=== PATIENT | male | born 1945 | race Caucasian/White ===

== ENCOUNTER 2018-07-10 01:41 | Inpatient (IN) | payer MEDICARE ==
[~2018-07-10] VITALS: Ht 165.1 cm; Wt 61.2 kg
[2018-07-10 01:45] VITALS: BP 124/61
--- NOTE | 2018-07-10 01:50 | NUR ---
ADMISSION NOTES: RECEIVED REPORT FROM SUPERVISOR MA[employer]ERS LISSETH, PT DIRECT ADMIT FROM [facility], BROUGHT TO THE UNIT VIA GURNEY. PT A/O X4 CHINESE SPEAKING UNDERSTAND CITIZEN [place] ABLE TO MAKE NEEDS KNOWN IN [place]IZ[place]. ON RA RESPIRATION EVEN AND UNLABORED. IV ACCESS PATENT AND FLUSHING WELL, ON HL. ORIENTED PT TO UNIT POLICY AND HOURLY ROUNDING, USE OF CALL LIGHT. INVENTORY OF BELONGING COMPLETED BY MELIDA GIRALDO. VS TAKEN AND RECORDED. SKIN ASSESSMENT PERFORMED. WOUND CARE DONE. MRSA SWAB COLLECTED. NOTIFIED MD REGARDING PT'S ARRIVAL IN THE UNIT. SAFETY PRECAUTIONS FOR FALL INITIATED, CALL LIGHT IN REACH, WILL CONTINUE MONITORING PT.
[2018-07-10 02:00] VITALS: BP 124/61
[2018-07-10] MEDS ORDERED: TETR-66 PO (02:29)
--- NOTE | 2018-07-10 02:34 | NUR ---
prn norco: pt c/o right great toe-foot pain 06/17 requesting for pain medication, prn norco 5/325 mg tab po administered to the pt at this time, will continue to monitor and reassess pt
[2018-07-10] MEDS ORDERED: MAGNESIUM HYDROXIDE 30 ML UDC PO PRN (03:00)
[2018-07-10] MEDS ORDERED: VANCOMYCIN 1 GM in IV NS 0.9% 250 ML IV ONE (03:00)
[2018-07-10] MEDS ORDERED: MORPHINE SULFATE INJ 2 MG/ML DISP.SYRIN IV PRN (03:00)
[2018-07-10] MEDS ORDERED: ZOLPIDEM TARTRATE 5 MG TABLET PO PRN (03:00)
[2018-07-10] MEDS ORDERED: ONDANSETRON HCL/PF 4 MG/2 ML VIAL IVP PRN (03:00)
[2018-07-10] MEDS ORDERED: Z GUARD REMEDY 2 OZ OINT TP PRN (03:00)
[2018-07-10] MEDS ORDERED: DEXTROSE 50%-WATER 50 ML DISP.SYRIN IV PRN (03:00)
[2018-07-10] MEDS ORDERED: ACETAMINOPHEN 325 MG TABLET PO PRN (03:00)
[2018-07-10] MEDS ORDERED: MAG HYDROX/AL HYDROX/SIMETH 30 ML UDC PO PRN (03:00)
--- NOTE | 2018-07-10 03:00 | NUR ---
RN NOTES: NOTIFIED PHARMACY PATHOLOGY TECHNOLOGIST THAT PT RECEIVED VANCOMYCIN 1000MG IV IN [place] AT 2119 07/09/18
[2018-07-10] MEDS ORDERED: PIPERACILLIN /TAZOBACTAM 3.375 G VIAL IV ONE (03:05)
[2018-07-10 03:17] LABS: BASOPHILS % (AUTO) 0.5 % (0.0-2.0); EOSINOPHILS % (AUTO) 0.6 % (0.0-6.0); HEMATOCRIT 33 % (39-51); HEMOGLOBIN 11.4 g/dL (13.5-17.5); LYMPHOCYTES # (AUTO) 1.4 /CMM (0.8-4.8); LYMPHOCYTES % (AUTO) 17.7 % (20.0-44.0); MEAN CORPUSCULAR HGB CONC 35 g/dl (31.0-36.0); MEAN CORPUSCULAR VOLUME 91 fL (80-96); MONOCYTES # (AUTO) 0.5 /CMM (0.1-1.30); MONOCYTES % (AUTO) 6.8 % (2.0-12.0); NEUTROPHILS # (AUTO) 5.8 /CMM (1.8-8.9); NEUTROPHILS % (AUTO) 74.4 % (43.0-81.0); PLATELET COUNT (AUTO) 316 /CMM (150-450); RED BLOOD CELL COUNT(AUTO) 3.62 MIL/uL (4.5-6.0); WHITE BLOOD COUNT (AUTO) 7.8 K/uL (4.3-11.0)
[2018-07-10] MEDS ORDERED: PIPERACILLIN /TAZOBACTAM 3.375 G in IV NS 0.9% 100 ML IV ONE (03:30)
[2018-07-10 03:34] LABS: ALANINE AMINOTRANSFERASE 11 U/L (12-78); ALBUMIN 2.3 g/dL (3.4-5.0); ALKALINE PHOSPHATASE 88 U/L (46-116); ASPARTATE AMINOTRANSFERASE 9 U/L (15-37); BILIRUBIN,TOTAL 0.3 mg/dL (0.2-1.0); CALCIUM, SERUM 8.5 mg/dL (8.5-10.1); CARBON DIOXIDE 26 mmol/L (21-32); CHLORIDE 107 mmol/L (98-107); CREATININE 0.9 mg/dL (0.6-1.3); GLUCOSE 127 mg/dL (74-106); POTASSIUM 3.2 mmol/L (3.5-5.1); SODIUM SERUM 142 mmol/L (136-145); TOTAL PROTEIN, SERUM 7.3 g/dL (6.4-8.2); UREA NITROGEN, BLOOD 16 mg/dL (7-18)
[2018-07-10] MEDS: HYDROCODONE/APAP 5/325MG 1 EACH TABLET PO PRN ×2 (03:34→08:59)
[2018-07-10] MEDS: BLOOD SUGAR DIAGNOSTIC 1 EACH STRIP VI SCH ×4 (05:39→21:55)
[2018-07-10] MEDS: INSULIN REGULAR, HUMAN 100 UNIT/ML 3 ML VIAL SQ PRN ×2 (05:41→13:29)
--- NOTE | 2018-07-10 05:45 | NUR ---
accu check 188: blood sugar 188, 3units of insulin given per sliding scale
--- NOTE | 2018-07-10 06:08 | NUR ---
RN NOTES: NOTIFIED INDIVIDUAL PENSION ADVISER MD REGARDING RESULT OF POTASSIUM, K 3.2 AWAITING FOR CALLBACK
--- NOTE | 2018-07-10 06:11 | NUR ---
PARAM NOTES: 40MG PO KCL REPLACEMENT T/O BY
[2018-07-10] MEDS ORDERED: POTASSIUM CHLORIDE 10 MEQ TABLET.SA PO ONE (06:30)
--- NOTE | 2018-07-10 06:42 | NUR ---
rn closing notes: pt in bed, denies any pain or discomfort at this time, iv access remains patent and flushing well, on hl. vs remains stable, dressing on right foot remains c/d/i. needs attended. safety precautions for fall remains engaged, call light in reach, will endorse to day rn for continuity of care.
[2018-07-10 08:00] VITALS: BP 124/60
--- NOTE | 2018-07-10 08:00 | NUR ---
RN NOTES RECEIVED PATIENT IN THE BED A/ O X3 FAROESE SPEAKER, NO SOB, UNLABORED. PATIENT HAS A IV ACCESS ON RIGHT AC AREA INTACT, PATENT. ADMINISTERED SCHEDULED MEDICATION, V/S STABLE. PATIENT HAS A BLOCK DISCOLORATION OF RIGHT BIG TOE, AND EDEMA . COVERED WITH DRY DRESSING. ENCOURAGED DO NOT PUT PRESSURE ON. KEEP ELEVATED USING PILLOWS. PATIENT USING BATHROOM, AND URINAL. CLL LIGHT WITHIN TO REACH, SAFETY PRECAUTION MAINTAINED ALL THE TIME.
[2018-07-10] MEDS ORDERED: FEE PK DOSING 1 MIN EA MC ONE (08:01)
[2018-07-10] MEDS: VANCOMYCIN 0.75 GM in IV D5W 250 ML IV SCH ×2 (08:53→20:29)
--- NOTE | 2018-07-10 09:00 | NUR ---
RN NOTES ADMINISTERED NARCO 5/325 MG PO PRN FOR RIGHT FOOT PAIN 07/18 PER PATIENT REQUEST, V/S TAKEN BP 124/60, P-54, CONTINUED MONITORING. PATIENT AMBULATORY USING BATHROOM. INFUSING VANCOMYCIN 250 MG/ML HR ON RIGHT AC AREA INTACT, PATENT. CALL LIGHT WITHIN TO REACH. SAFETY PRECAUTION MAINTAINED ALL THE TIME.
[2018-07-10] MEDS: PIPERACILLIN /TAZOBACTAM 3.375 G in IV D5W 100 ML IV SCH ×2 (10:23→18:06)
--- NOTE | 2018-07-10 12:00 | NUR ---
RN NOTES BS-276 MG/DL. COVERAGE GIVEN, ALSO INFUSING ZOSYN 25 ML/HR NOW, SAFETY PRECAUTION MAINTAINED ALL THE TIME.
[2018-07-10 16:00] VITALS: BP 109/56
--- NOTE | 2018-07-10 18:30 | NUR ---
RN NOTES BS-126 MG/DL, COVERAGE GIVEN, ADMINISTERED SCHEDULED MEDICATION, V/S STABLE, SAFETY PRECAUTION MAINTAINED ALL THE TIME.
--- NOTE | 2018-07-10 18:30 | NUR ---
RN NOTES PATIENT STABLE, REFUSED PAIN, INFUSING ZOSYN 25 ML/HR INTACT ON RIGHT AC AREA , V/S STABLE. ENDORSED ONCOMING NURSE PLAN OF CARE.
[2018-07-10 20:00] VITALS: BP 135/66
[2018-07-10] MEDS: *INSULIN REGULAR(HUMULIN R)HUM 100 UNIT/ML VIAL SQ PRN (22:06)
[2018-07-11] MEDS: PIPERACILLIN /TAZOBACTAM 3.375 G in IV D5W 100 ML IV SCH ×3 (01:18→17:12)
[2018-07-11] MEDS: BLOOD SUGAR DIAGNOSTIC 1 EACH STRIP VI SCH ×4 (06:53→22:22)
[2018-07-11] MEDS: INSULIN REGULAR, HUMAN 100 UNIT/ML 3 ML VIAL SQ PRN ×3 (06:54→17:32)
--- NOTE | 2018-07-11 07:29 | NUR ---
MS RN OPENING NOTES RECEIVED PT AWAKE IN BED IN NO ACUTE SIGNS OF DISTRESS. A/O X4. ABLE TO MAKE NEEDS KNOWN, DENIES PAIN OR DISCOMFORTS AT THIS TIME. ON ROOM AIR, BREATHING EVEN AND UNLABORED. DRESSINGS ON RIGHT FOOT C/D/I. IV ACCESS ON RAC G#20 INTACT AND PATENT. BED IN LOWEST LOCKED POSITION WITH SR UP X2. CALL LIGHT WITHIN REACH. WILL CONTINUE TO MONITOR ACCORDINGLY.
[2018-07-11 08:00] VITALS: BP 137/69
[2018-07-11 08:19] LABS: BASOPHILS # (AUTO) 0.1 /CMM (0.0-0.2); BASOPHILS % (AUTO) 0.8 % (0.0-2.0); EOSINOPHILS % (AUTO) 0.9 % (0.0-6.0); HEMATOCRIT 35 % (39-51); HEMOGLOBIN 12.1 g/dL (13.5-17.5); LYMPHOCYTES # (AUTO) 1.8 /CMM (0.8-4.8); LYMPHOCYTES % (AUTO) 22.9 % (20.0-44.0); MEAN CORPUSCULAR HGB CONC 35 g/dl (31.0-36.0); MEAN CORPUSCULAR VOLUME 91 fL (80-96); MONOCYTES # (AUTO) 0.6 /CMM (0.1-1.30); MONOCYTES % (AUTO) 8.1 % (2.0-12.0); NEUTROPHILS # (AUTO) 5.2 /CMM (1.8-8.9); NEUTROPHILS % (AUTO) 67.3 % (43.0-81.0); PLATELET COUNT (AUTO) 331 /CMM (150-450); RED BLOOD CELL COUNT(AUTO) 3.82 MIL/uL (4.5-6.0); WHITE BLOOD COUNT (AUTO) 7.7 K/uL (4.3-11.0)
[2018-07-11 08:30] LABS: CALCIUM, SERUM 8.1 mg/dL (8.5-10.1); CARBON DIOXIDE 24 mmol/L (21-32); CHLORIDE 104 mmol/L (98-107); GLUCOSE 187 mg/dL (74-106); MAGNESIUM 1.9 mg/dL (1.8-2.4); PHOSPHORUS 2.8 mg/dL (2.5-4.9); POTASSIUM 3.8 mmol/L (3.5-5.1); SODIUM SERUM 138 mmol/L (136-145); UREA NITROGEN, BLOOD 11 mg/dL (7-18)
[2018-07-11 08:52] LABS: CHOLESTEROL 124 mg/dL (<200); HDL CHOLESTEROL 31 mg/dL (40-60); LDL 77 mg/dL (0-99); THYROID STIMULATING HORMONE 1.637 uIU/mL (0.358-3.74); TRIGLYCERIDES 101 mg/dL (30-150)
[2018-07-11] MEDS: INSULIN GLARGINE, 100 UNIT/ML CARTRIDGE SQ SCH ×2 (09:09→22:33)
[2018-07-11] MEDS: METFORMIN 500 MG TABLET PO SCH ×2 (09:10→16:10)
[2018-07-11] MEDS: VANCOMYCIN 0.75 GM in IV D5W 250 ML IV SCH (09:10)
--- NOTE | 2018-07-11 11:20 | NUR ---
RN NOTES PATIENT SEEN AND EVALUATED BY DR CADET WITH ORDER TO OBTAIN CONSENTS FOR RIGHT FOOT WOUND DEBRIDEMENT TODAY AND RIGHT FOOT PARTIAL FIRST RAY AMPUTATION TOMORROW. PT VERBALIZED UNDERSTANDING OF SAID SURGERIES AND SIGNED ALL CONSENTS. PT FOR MRI OF RIGHT FOOT WITHOUT CONTRAST. MRI CHECKLIST DONE. DIRECTOR OF DIETARY CALLED AND HE STATED THAT THEY WILL COME TODAY TO DO IT. WILL CONTINUE TO MONITOR.
[2018-07-11] MEDS ORDERED: LIDOCAINE 1% INJ 50 ML MDV IJ STA (11:51)
--- NOTE | 2018-07-11 12:57 | NUR ---
RN NOTES PT WENT EARLIER FOR MRI OF RIGHT FOOT W/O CONTRAST VIA WHEELCHAIR AND CAME BACK IN NO ACUTE SIGNS OF DISTRESS. WILL F/U RESULTS OF MRI.
--- NOTE | 2018-07-11 13:31 | NUR ---
WOUND CARE CONSULT: PT FOLLOWED BY DR NY FOR LOWER EXTREMITY WOUND. DEFER TO PODIATRY FOR WOUND TREATMENT PLAN. CURRENT DUSTIN SCORE IS 23. WILL SEE PRN.
--- NOTE | 2018-07-11 14:20 | NUR ---
RN NOTES PT S/P RIGHT FOOT WOUND DEBRIDEMENT BY DR NY. WOUND SPECIMEN COLLECTED FOR CULTURE. DRESSING C/D/I WRAPPED WITH WIL BANDAGE. WILL CONTINUE TO MONITOR.
[2018-07-11 16:00] VITALS: BP 116/57
[2018-07-11] MEDS: LACTOBACILLUS RHAMNOSUS GG 1 EACH CAP.SPRINK PO SCH (16:10)
--- NOTE | 2018-07-11 18:41 | NUR ---
MS RN CLOSING NOTES PT IN BED AWAKE AND RESTING AT MODERATE HIGH BACKREST POSITION. A/O X4. WELSH SPEAKING AND UNDERSTANDS SOME [place]. ON ROOM AIR, TOLERATING WELL WITH NO SOB NOTED. PT FOR RIGHT FOOT PARTIAL FIRTS RAY AMPUTATION TOMORROW BY DR NY. NPO TO BE ENFORCED POST MIDNIGHT, PT MADE AWARE. DRESSINGS ON RIGHT FOOT C/D/I. IV ACCESS ON RAC G#20 INTACT AND PATENT, IV ATB ZOSYN @ 225ML/HR INFUSING AT THIS TIME, NO S/S OF INFILTRATIONS NOTED. SAFETY MEASURES IN PLACE. BED IN LOWEST LOCKED POSITION WITH SR UP X2. CALL LIGHT WITHIN REACH. WILL ENDORSE TO BARREL RIBS SOLDERER NURSE FOR CARMELITA.
--- NOTE | 2018-07-11 19:50 | NUR ---
RN NOTES RECEIVED PATIENT IN BED AWAKE AND RESTING AT MODERATE HIGH BACKREST POSITION. A/O X4. SWEDISH SPEAKING AND UNDERSTANDS SOME [place]. ON ROOM AIR, TOLERATING WELL WITH NO SOB NOTED. PT FOR RIGHT FOOT PARTIAL FIRST RAY AMPUTATION TOMORROW BY DR NY. DRESSINGS ON RIGHT FOOT C/D/I. IV ACCESS ON RAC G#20 INTACT AND PATENT, NO S/S OF INFILTRATIONS NOTED. SAFETY MEASURES IN PLACE. BED IN LOWEST LOCKED POSITION WITH SR UP X2. CALL LIGHT WITHIN REACH. WILL CONTINUE TO MONITOR ACCORDINGLY.
[2018-07-11 20:00] VITALS: BP 131/65
[2018-07-11] MEDS: HYDROCODONE/APAP 5/325MG 1 EACH TABLET PO PRN (20:33)
--- NOTE | 2018-07-11 20:33 | NUR ---
RN NOTES PATIENT C/O PAIN 08/17, NORCO 5-325 MG/TAB GIVEN , WILL CONTINUE TO MONITOR.
[2018-07-11] MEDS: *INSULIN REGULAR(HUMULIN R)HUM 100 UNIT/ML VIAL SQ PRN (22:31)
[2018-07-12] MEDS: PIPERACILLIN /TAZOBACTAM 3.375 G in IV D5W 100 ML IV SCH ×3 (02:41→17:25)
--- NOTE | 2018-07-12 06:59 | NUR ---
RN NOTES ALL NEEDS ATTENDED AND MET, NPO SINCE AFTER MIDNIGHT, PATIENT VERBALIZES UNDERSTANDING THAT HE WILL HAVE A SURGERY / PROCEDURE TODAY 07/12/18 AT 1300. DENIES ANY PAIN AND/OR DISCOMFORT AT THIS TIME BLOOD GLUCOSE CHECKED 148 MG/DL, SAFETY MEASURES IN PLACE, CALL LIGHT WITHIN EASY REACH, WILL ENDORSE TO AM NURSE FOR CONTINUITY OF CARE.
[2018-07-12 07:04] LABS: CALCIUM, SERUM 8.2 mg/dL (8.5-10.1); CARBON DIOXIDE 27 mmol/L (21-32); CHLORIDE 104 mmol/L (98-107); GLUCOSE 152 mg/dL (74-106); POTASSIUM 3.7 mmol/L (3.5-5.1); SODIUM SERUM 140 mmol/L (136-145); UREA NITROGEN, BLOOD 10 mg/dL (7-18)
--- NOTE | 2018-07-12 07:33 | NUR ---
MS/RN OPENING NOTE PATIENT IN BED IN STABLE CONDITION. A/O X 4. NO SIGNS OF ACUTE DISTRESS. NO COMPLAIN OF PAIN OR DISCOMFORT. ALL NEEDS ATTENDED TO. CALL LIGHT WITHIN REACH. WILL CONTINUE TO MONITOR TO ENSURE SAFETY.
[2018-07-12 08:00] VITALS: BP 122/58
[2018-07-12] MEDS: LACTOBACILLUS RHAMNOSUS GG 1 EACH CAP.SPRINK PO SCH ×2 (08:32→17:24)
[2018-07-12] MEDS: BLOOD SUGAR DIAGNOSTIC 1 EACH STRIP VI SCH ×4 (08:32→22:21)
[2018-07-12] MEDS: METFORMIN 500 MG TABLET PO SCH ×2 (08:33→17:24)
[2018-07-12] MEDS: INSULIN REGULAR, HUMAN 100 UNIT/ML 3 ML VIAL SQ PRN ×2 (11:47→17:50)
[2018-07-12] MEDS ORDERED: BUPIVACAINE MPF 0.5% W/EPI INJ 30 ML VIAL ONE (11:55)
[2018-07-12] MEDS ORDERED: LIDOCAINE HCL/PF 1% 30 ML SDV ONE (11:55)
[2018-07-12] MEDS ORDERED: FENTANYL PF 100MCG/2ML AMPUL ONE (12:47)
[2018-07-12] MEDS ORDERED: ROCURONIUM BROMIDE 50 MG/5 ML ONE (12:47)
[2018-07-12] MEDS ORDERED: MIDAZOLAM HCL 2 MG/2ML VIAL ONE (12:47)
--- NOTE | 2018-07-12 12:48 | NUR ---
MS/RN PATIENT LEFT FOR SURGERY IN STABLE CONDITION VIA BED ACCOMPANIED BY OR NURSE AND TRANSPORTER PERSONAL.
--- NOTE | 2018-07-12 14:30 | NUR ---
MS/RN PATIENT RETURNED FROM SURGERY IN STABLE CONDITION. S/P RIGHT FOOT PARTIAL FIRST RAY AMPUTATION TODAY. TOLERATED WELL. A/O X 4. PREVIOUS DIET RESUMED,RLE NWB, WOUND DRESSING CHANGE ORDER PER DR MONIQUE Marks. ALSO VERIFY ORDER FOR F/U WOUND CX PER DR AMAYA DISREGARD THAT ORDER. ALL ORDERS NOTED AND CARRIED OUT PATIENT AWARE.
[2018-07-12 16:00] VITALS: BP 120/73
--- NOTE | 2018-07-12 18:21 | NUR ---
MS/RN CLOSING NOTE PATIENT IN BED IN STABLE CONDITION. A/O X 4. NO SIGNS OF ACUTE DISTRESS. NO COMPLAIN OF PAIN OR DISCOMFORT. ALL NEEDS ATTENDED TO. CALL LIGHT WITHIN REACH. WILL ENDORSE TO NEXT SHIFT FOR CONTINUITY OF CARE.
--- NOTE | 2018-07-12 19:55 | NUR ---
RN NOTES RECEIVED PATIENT AWAKE, RESTING COMFORTABLY, DENIES ANY PAIN OR DISCOMFORT AT THIS TIME, SAFETY MEASURES IN PLACE, CALL LIGHT WITHIN EASY REACH, IV ACCESS INTACT AND PATENT, KEEP COMFORTABLE, WILL CONTINUE TO MONITOR ACCORDINGLY.
[2018-07-12 20:23] VITALS: BP 121/57
[2018-07-12] MEDS: CEFTRIAXONE 1 G in IV D5W 50 ML IV SCH (20:36)
[2018-07-12] MEDS: INSULIN GLARGINE, 100 UNIT/ML CARTRIDGE SQ SCH (22:53)
[2018-07-12] MEDS: *INSULIN REGULAR(HUMULIN R)HUM 100 UNIT/ML VIAL SQ PRN (22:54)
[2018-07-13] MEDS: HYDROCODONE/APAP 5/325MG 1 EACH TABLET PO PRN ×2 (06:22→13:53)
--- NOTE | 2018-07-13 07:18 | NUR ---
RN NOTES ALL NEEDS ATTENDED, KEPT CLEAN DRY AND COMFORTABLE, COMPLAINTS OF PAIN 7/10 PAIN SCALE, NORCO 5-325MG GIVEN ORDERED, ENDORSED TO AM NURSE FOR CONTINUITY OF CARE, SAFETY MEASURES IN PLACE ASPIRATION PRECAUTION EMPHASIZE, NO APPARENT SIGNS OF DISTRESS LATEST BODY TEMP 98.7 F.
[2018-07-13] MEDS: BLOOD SUGAR DIAGNOSTIC 1 EACH STRIP VI SCH ×2 (07:39→12:22)
[2018-07-13 08:00] VITALS: BP 114/56
[2018-07-13 08:11] LABS: CALCIUM, SERUM 7.7 mg/dL (8.5-10.1); CARBON DIOXIDE 25 mmol/L (21-32); CHLORIDE 105 mmol/L (98-107); CREATININE 0.9 mg/dL (0.6-1.3); GLUCOSE 124 mg/dL (74-106); POTASSIUM 3.6 mmol/L (3.5-5.1); SODIUM SERUM 139 mmol/L (136-145); UREA NITROGEN, BLOOD 11 mg/dL (7-18)
[2018-07-13] MEDS: METFORMIN 500 MG TABLET PO SCH ×2 (09:10→16:54)
[2018-07-13] MEDS: LACTOBACILLUS RHAMNOSUS GG 1 EACH CAP.SPRINK PO SCH ×2 (09:10→16:54)
[2018-07-13] MEDS ORDERED: DEXTROSE 50%-WATER 50 ML DISP.SYRIN IV PRN (14:00)
[2018-07-13 16:00] VITALS: BP 133/62
[2018-07-13] MEDS: BLOOD SUGAR DIAGNOSTIC 1 EACH STRIP IN SCH ×2 (17:43→21:36)
[2018-07-13] MEDS: INSULIN ASPART/LISPRO 100 UNIT/ML CARTRIDGE SQ SCH (19:02)
--- NOTE | 2018-07-13 19:37 | NUR ---
PATIENT RESTING IN BED. ALL NEEDS ATTENDED, DRESSING CHANGED DIRECTED , NO COMPLAINTS OF PAIN AT THIS TIME, SAFETY MEASURES IN PLACE,CALL LIGHT WITHIN REACH. WILL ENDORSE TO NEXT SHIFT FOR CARMELITA.
[2018-07-13 20:00] VITALS: BP 142/67
--- NOTE | 2018-07-13 20:21 | NUR ---
PARAM PM OPENING NOTE. BEDSIDE REPORT RECIEVED FROM GREER VIRGEN. PATIENT RESTING IN BED.POC REVIEWED QUESTIONS CONCERNS ADDRESSED. NO COMPLAINTS OF PAIN AT THIS TIME, SAFETY MEASURES IN PLACE,CALL LIGHT WITHIN REACH. BED DOWN LOCKED SR X2 CALL LIGHT IN REACH. Addendum: 07/13/18 at 2025 by JACE ANG RN ERROR, INCORRECT TIME. TIME WAS 1914 FOR NOTE.
[2018-07-13] MEDS: CEFTRIAXONE 1 G in IV D5W 50 ML IV SCH (20:52)
[2018-07-13] MEDS: INSULIN GLARGINE, 100 UNIT/ML CARTRIDGE SQ SCH (21:36)
--- NOTE | 2018-07-13 21:37 | NUR ---
lant held no scheduled dose of lantus tonight but ordered daily for hs. Lantus not administered patient bs this evening is 88. will cont to monitor.
[2018-07-14] MEDS: BLOOD SUGAR DIAGNOSTIC 1 EACH STRIP IN SCH ×4 (06:57→21:29)
[2018-07-14] MEDS: HYDROCODONE/APAP 5/325MG 1 EACH TABLET PO PRN ×2 (06:59→14:06)
[2018-07-14 08:00] VITALS: BP 125/60
[2018-07-14 08:01] LABS: CALCIUM, SERUM 8.8 mg/dL (8.5-10.1); CARBON DIOXIDE 22 mmol/L (21-32); CHLORIDE 105 mmol/L (98-107); CREATININE 0.9 mg/dL (0.6-1.3); GLUCOSE 107 mg/dL (74-106); POTASSIUM 3.8 mmol/L (3.5-5.1); SODIUM SERUM 139 mmol/L (136-145); UREA NITROGEN, BLOOD 10 mg/dL (7-18)
[2018-07-14] MEDS: METFORMIN 500 MG TABLET PO SCH ×2 (08:29→17:47)
[2018-07-14] MEDS: LACTOBACILLUS RHAMNOSUS GG 1 EACH CAP.SPRINK PO SCH ×2 (08:29→17:47)
[2018-07-14] MEDS: INSULIN ASPART/LISPRO 100 UNIT/ML CARTRIDGE SQ SCH ×2 (08:33→18:20)
[2018-07-14] MEDS: INSULIN REGULAR, HUMAN 100 UNIT/ML 3 ML VIAL SQ PRN ×3 (11:38→21:31)
[2018-07-14] MEDS ORDERED: FEE PK DOSING 1 MIN EA MC ONE (12:52)
[2018-07-14] MEDS ORDERED: VANCOMYCIN 1 GM in IV D5W 250 ML IV SCH (14:00)
[2018-07-14 16:00] VITALS: BP 125/57
--- NOTE | 2018-07-14 19:07 | NUR ---
RN MS NOTES RECEIVED PATIENT IN BED AWAKE ALERT AND ORIENTED X4, RESPIRATIONS EVEN AND UNLABORED WITH EQUAL RISE AND FALL OF CHEST, DENIES ANY PAIN OR DISCOMFORT AT THIS TIME, RIGHT FOOT DRESSING AND WIL BANDAGE INTACT, CLEAN AND DRY, RIGHT AC#18G INTACT AND PATENT, NO REDNESS, NO INFILTRATION PRESENT,URINAL AT BEDSIDE AND WITHIN REACH, ORIENTED TO STAFF AND CALL LIGHT AND KEPT WITHIN REACH, SAFETY PRECAUTIONS IN PLACE,LOW BED AND LOCKED, MADE AWARE TO UTILIZE CALL LIGHT PRIOR TO GOING TO BATHROOM FOR ASSISTANCE AND SAFETY, AND NON WEIGHT BEARING STATUS TO RIGHT FOOT, VERBALIZE HE UNDERSTANDS, ALL NEEDS ATTENDED AT THIS TIME, WILL CONTINUE TO MONITOR AND ATTEND TO NEEDS.
--- NOTE | 2018-07-14 19:11 | NUR ---
PATIENT RESTING IN BED. ALL NEEDS ATTENDED, DRESSING CHANGED DIRECTED, DRESSING CLEAN AND INTACT . NO COMPLAINTS OF PAIN AT THIS TIME, SAFETY MEASURES IN PLACE,CALL LIGHT WITHIN REACH. WILL ENDORSE TO NEXT SHIFT FOR CARMELITA.
[2018-07-14 20:00] VITALS: BP 119/64
[2018-07-14] MEDS: CEFTRIAXONE 1 G in IV D5W 50 ML IV SCH (20:33)
[2018-07-14] MEDS: INSULIN GLARGINE, 100 UNIT/ML CARTRIDGE SQ SCH (21:29)
--- NOTE | 2018-07-14 21:30 | NUR ---
RN MS NOTES ACCU-CHECK 79, PATIENT AT THIS TIME DOES NOT WANT TO HAVE INSULIN LANTUS ADMINISTERED. WILL CONTINUE TO MONITOR FOR ANY CHANGED
[2018-07-15] MEDS: INSULIN REGULAR, HUMAN 100 UNIT/ML 3 ML VIAL SQ PRN ×3 (06:25→17:59)
[2018-07-15] MEDS: BLOOD SUGAR DIAGNOSTIC 1 EACH STRIP IN SCH ×4 (06:29→23:31)
--- NOTE | 2018-07-15 06:51 | NUR ---
RN MS CLOSING NOTES PATIENT IN BED AWAKE ALERT AND ORIENTED X4, RESPIRATIONS EVEN AND UNLABORED WITH EQUAL RISE AND FALL OF CHEST, DENIES ANY PAIN OR DISCOMFORT AT THIS TIME, RIGHT FOOT DRESSING AND WIL BANDAGE INTACT, CLEAN AND DRY, RIGHT AC#18G INTACT AND PATENT, NO REDNESS, NO INFILTRATION PRESENT,URINAL AT BEDSIDE AND WITHIN REACH, CALL LIGHT KEPT WITHIN REACH, SAFETY PRECAUTIONS IN PLACE,LOW BED AND LOCKED NON WEIGHT BEARING STATUS TO RIGHT FOOT, VERBALIZE HE UNDERSTANDS, ALL NEEDS ATTENDED THROUGHOUT SHIFT, WILL CONTINUE TO MONITOR AND ATTEND TO NEEDS AND ENDORSE TO NEXT SHIFT, PATIENT REFUSED TO HAVE LINENS AND GOWN CHANGED.
--- NOTE | 2018-07-15 07:06 | NUR ---
MS RN NOTES PATIENT IN BED ALERT ORIENTED X 3. NO ACUTE DISTRESS NOTED. BREATHING UNLABORED. IV ACCESS PATENT AND INTACT, NO REDNESS OR SWELLING NOTED. SAFETY MEASURES IN PLACE, CALL LIGHT WITHIN REACH. WILL CONTINUE TO MONITOR ACCORDINGLY.
[2018-07-15 08:01] LABS: CALCIUM, SERUM 8.4 mg/dL (8.5-10.1); CARBON DIOXIDE 25 mmol/L (21-32); CHLORIDE 103 mmol/L (98-107); CREATININE 0.9 mg/dL (0.6-1.3); GLUCOSE 176 mg/dL (74-106); POTASSIUM 3.8 mmol/L (3.5-5.1); SODIUM SERUM 138 mmol/L (136-145); UREA NITROGEN, BLOOD 12 mg/dL (7-18)
[2018-07-15] MEDS: METFORMIN 500 MG TABLET PO SCH ×2 (08:58→17:23)
[2018-07-15] MEDS: LACTOBACILLUS RHAMNOSUS GG 1 EACH CAP.SPRINK PO SCH ×2 (08:59→17:23)
[2018-07-15] MEDS: INSULIN ASPART/LISPRO 100 UNIT/ML CARTRIDGE SQ SCH ×2 (09:00→18:00)
[2018-07-15 11:18] VITALS: BP 98/55
[2018-07-15 15:57] VITALS: BP 104/48
--- NOTE | 2018-07-15 19:35 | NUR ---
MSRN FULLY AWAKE. NO COMPLAINTS OF PAIN. RIGHT FOOT DRESSING DRY AND INTACT. ASLL NEEDS ATTENDED, STABLE FOR NOW.
[2018-07-15 20:00] VITALS: BP 117/63
--- NOTE | 2018-07-15 20:00 | NUR ---
MSRN IV SITE CLOGGED. RESTARTED NEW HL ON RIGHT FA 22 GAUGE WITH GOOD BLOOD RETURN. ANTIBIOTIC INFUSING WELL.
[2018-07-15] MEDS: CEFTRIAXONE 1 G in IV D5W 50 ML IV SCH (20:34)
--- NOTE | 2018-07-16 | NUR ---
MSRN AWAKENED, BS 143, DUE MED ADMINISTERED. SAFETY PRECAUTIONS EMPHASIZED, WALKER AT BEDSIDE. REMINDED NON WEIGHT BEARING ON RIGHT FOOT. WELL UNDERSTOOD.
[2018-07-16] MEDS: INSULIN GLARGINE, 100 UNIT/ML CARTRIDGE SQ SCH ×2 (00:18→21:21)
[2018-07-16 06:19] LABS: BASOPHILS # (AUTO) 0.1 /CMM (0.0-0.2); BASOPHILS % (AUTO) 0.9 % (0.0-2.0); EOSINOPHILS % (AUTO) 1.1 % (0.0-6.0); HEMATOCRIT 32 % (39-51); HEMOGLOBIN 11.1 g/dL (13.5-17.5); LYMPHOCYTES # (AUTO) 2.1 /CMM (0.8-4.8); LYMPHOCYTES % (AUTO) 35.1 % (20.0-44.0); MEAN CORPUSCULAR HGB CONC 35 g/dl (31.0-36.0); MEAN CORPUSCULAR VOLUME 91 fL (80-96); MONOCYTES # (AUTO) 0.6 /CMM (0.1-1.30); MONOCYTES % (AUTO) 9.4 % (2.0-12.0); NEUTROPHILS # (AUTO) 3.2 /CMM (1.8-8.9); NEUTROPHILS % (AUTO) 53.5 % (43.0-81.0); PLATELET COUNT (AUTO) 484 /CMM (150-450); RED BLOOD CELL COUNT(AUTO) 3.55 MIL/uL (4.5-6.0)
--- NOTE | 2018-07-16 06:30 | NUR ---
MSRN BS WAS 170, COVERED WITH 3 UNIT REGULAR INSULIN SQ PER SLIDING SCALE. NORCO 1 TAB PO ADMINISTERED FOR RIGHT FOOT PAIN. BEDREST INSTRUCTED.
[2018-07-16 06:34] LABS: CALCIUM, SERUM 8.9 mg/dL (8.5-10.1); CARBON DIOXIDE 26 mmol/L (21-32); CHLORIDE 104 mmol/L (98-107); CREATININE 0.9 mg/dL (0.6-1.3); GLUCOSE 156 mg/dL (74-106); PHOSPHORUS 3.1 mg/dL (2.5-4.9); POTASSIUM 3.9 mmol/L (3.5-5.1); SODIUM SERUM 140 mmol/L (136-145); UREA NITROGEN, BLOOD 14 mg/dL (7-18)
[2018-07-16] MEDS: HYDROCODONE/APAP 5/325MG 1 EACH TABLET PO PRN (06:42)
[2018-07-16] MEDS: BLOOD SUGAR DIAGNOSTIC 1 EACH STRIP IN SCH ×4 (06:43→21:19)
[2018-07-16] MEDS: INSULIN REGULAR, HUMAN 100 UNIT/ML 3 ML VIAL SQ PRN ×4 (07:31→17:01)
--- NOTE | 2018-07-16 07:52 | NUR ---
RN MS OPENING NOTES Patient received on room air, no sob noted. Patient denies pain at this time. Patient remains a/o x4. Patient lying down comfortably on bed. Bed at the lowest setting, call light within reach.
[2018-07-16 08:45] VITALS: BP 130/65
[2018-07-16] MEDS: INSULIN ASPART/LISPRO 100 UNIT/ML CARTRIDGE SQ SCH ×2 (09:11→19:40)
[2018-07-16] MEDS: METFORMIN 500 MG TABLET PO SCH ×2 (09:11→16:15)
[2018-07-16] MEDS: LACTOBACILLUS RHAMNOSUS GG 1 EACH CAP.SPRINK PO SCH ×2 (09:12→16:15)
[2018-07-16 16:00] VITALS: BP 136/68
--- NOTE | 2018-07-16 19:35 | NUR ---
RN MS Closing NOTES Patient remains on room air, no sob noted. Patient denies pain at this time. Patient denies discomfort in his right great toe. all medications and care given to patient. patient remains a/o x4. Bed at the lowest setting, call light within reach.
[2018-07-16 20:00] VITALS: BP 132/63
[2018-07-16] MEDS: CEFTRIAXONE 1 G in IV D5W 50 ML IV SCH (21:08)
--- NOTE | 2018-07-17 06:00 | NUR ---
pt alert, oriented , s/p great toe amputee, nwb but pt non compliant and goes to bathroom. pt stated he walks with heel touch. pt had bs 64mg/dl last night ,asymptomatic, given snacks and juice and bs rechecked 112mg/dl, lantus not given. continue with antibiotics, denies any pain or discomfort, vss,afebrile. slept well. no significant changes this am bs 180mg/dl given insulin coverage.
[2018-07-17] MEDS: BLOOD SUGAR DIAGNOSTIC 1 EACH STRIP IN SCH ×3 (06:33→16:13)
[2018-07-17] MEDS: INSULIN REGULAR, HUMAN 100 UNIT/ML 3 ML VIAL SQ PRN ×2 (06:49→16:19)
[2018-07-17 08:00] VITALS: BP 105/62
[2018-07-17] MEDS: METFORMIN 500 MG TABLET PO SCH ×2 (08:54→16:07)
[2018-07-17] MEDS: LACTOBACILLUS RHAMNOSUS GG 1 EACH CAP.SPRINK PO SCH ×2 (08:54→16:07)
[2018-07-17] MEDS: INSULIN ASPART/LISPRO 100 UNIT/ML CARTRIDGE SQ SCH ×2 (08:55→16:20)
[2018-07-17] MEDS ORDERED: Insulin Glargine,Hum SQ (14:02)
[2018-07-17] MEDS ORDERED: CEFT1FRO2 IV (14:02)
[2018-07-17] MEDS ORDERED: METF-440 PO (14:02)
[2018-07-17] MEDS ORDERED: INSU100V28 SQ (14:02)
[2018-07-17] MEDS ORDERED: INSU100C4 SQ (14:02)
[2018-07-17 16:00] VITALS: BP 127/67
== END 2018-07-17 19:45 | DRG 616 ==
LOC: MED 01:41
PROVIDERS: ADMIT Internal Medicine; ATTEND Nurse Practitioner Acute Care
PROC: 0QBQ0ZZ Excision of Right Toe Phalanx, Open Approach (ICD-10-PCS; 2018-07-11)
PROC: 0Y6P0Z0 Detachment at Right 1st Toe, Complete, Open Approach (ICD-10-PCS; principal; 2018-07-12)
PROC: 05H633Z Insertion of Infusion Device into Left Subclavian Vein, Percutaneous Approach (ICD-10-PCS; 2018-07-17)
PROC: B547ZZA Ultrasonography of Left Subclavian Vein, Guidance (ICD-10-PCS; 2018-07-17)
DX: E11.69 Type 2 diabetes mellitus with other specified complication (principal); A48.0 Gas gangrene; E11.52 Type 2 diabetes mellitus with diabetic peripheral angiopathy with gangrene; M86.8X7 Other osteomyelitis, ankle and foot; L03.031 Cellulitis of right toe; D63.8 Anemia in other chronic diseases classified elsewhere; E11.65 Type 2 diabetes mellitus with hyperglycemia; E87.6 Hypokalemia; E11.22 Type 2 diabetes mellitus with diabetic chronic kidney disease; M19.90 Unspecified osteoarthritis, unspecified site; N18.9 Chronic kidney disease, unspecified; E11.51 Type 2 diabetes mellitus with diabetic peripheral angiopathy without gangrene; Z79.4 Long term (current) use of insulin; E11.621 Type 2 diabetes mellitus with foot ulcer; L97.514 Non-pressure chronic ulcer of other part of right foot with necrosis of bone; M20.41 Other hammer toe(s) (acquired), right foot; E11.42 Type 2 diabetes mellitus with diabetic polyneuropathy
CPT/HCPCS: 36415; 73630-TC; 73718-TC; 80048-TC; 80053-TC; 80061-TC; 80202-TC; 82962-TC; 83735-TC; 84100-TC; 84443-TC; 84484-TC; 85025-TC; 85610-TC; 87040-TC; 87070-TC; 87081-TC; 93926-TC; 97110-TC; 97116-TC; 97530-TC; A6209; A6402; A6403; G0378; J0330; J0696; J1815; J2250; J2270; J2405; J2543; J2704; J2765; J3010; J3370; J3490; J7030; J7050; J7060